=== PATIENT | female | born 1970 | race Caucasian/White ===

== ENCOUNTER 2016-09-27 14:48 | Emergency (ER) | payer OTHER ==
[~2016-09-27] VITALS: Ht 170.2 cm; Wt 68.0 kg
[~2016-09-27 14:48] MED LIST: ALBU8I INH; ALPR2TAB3 PO; METH10TA PO
[2016-09-27 15:00] VITALS: BP 107/58; PULSE 50; RESP 16; TEMP 97.8; O2SAT 94
[2016-09-27 16:28] LABS: AUTOMATED NEUTROPHIL # 2.9 TH/MM3 (1.8-7.7); BASOPHIL # 0.1 TH/MM3 (0-0.2); BASOPHIL % 0.9 % (0.0-2.0); EOSINOPHIL # 0.1 TH/MM3 (0-0.4); EOSINOPHIL % 1.9 % (0.0-4.0); HEMATOCRIT 39.2 % (35.0-46.0); HEMO FLAGS DIFF FINAL; LYMPH % 39.3 % (9.0-44.0); LYMPHOCYTE # 2.4 TH/MM3 (1.0-4.8); MEAN CELL VOLUME 90.4 FL (80.0-100.0); MEAN CORPUSCULAR HGB CONC 34.2 % (32.0-36.0); NEUT % 48.9 % (16.0-70.0); PLATELET COUNT 150 TH/MM3 (150-450); RED BLOOD COUNT 4.34 MIL/MM3 (4.00-5.30); RED CELL DISTRIBUTION WIDTH 13.7 % (11.6-17.2)
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
[2016-09-27 16:54] LABS: ALT (GPT) 45 U/L (10-53); AST (GOT) 40 U/L (15-37); BICARBONATE 29.8 MEQ/L (21.0-32.0); BLOOD UREA NITROGEN 12 MG/DL (7-18); GLOMERULAR FILTRATION RATE 74 ML/MIN (>89)
[2016-09-27 17:36] LABS: ALKALINE PHOSPHATASE 74 U/L (45-117); ANION GAP 6 MEQ/L (5-15); BETA HCG QUANT LESS THAN 1 MIU/ML (0-5); CHLORIDE 101 MEQ/L (98-107); SODIUM (NA) 137 MEQ/L (136-145); TOTAL BILIRUBIN ADULT 0.3 MG/DL (0.2-1.0)
--- NOTE | 2016-09-27 17:46 | RADRPT ---
EXAM DATE/TIME: 09/27/2016 17:30 [facility] COMPARISON: CT BRAIN W/O CONTRAST, September 02, 2012, 21:29. INDICATIONS : Altered mental status today. RADIATION DOSE: 40.48 CTDIvol (mGy) MEDICAL HISTORY : Hypertension. SURGICAL HISTORY : None. ENCOUNTER: Initial ACUITY: 1 day PAIN SCALE: 0/10 LOCATION: cranial TECHNIQUE: Multiple contiguous axial images were obtained of the head. Using automated exposure control and adj ustment of the mA and/or kV according to patient size, radiation dose was kept as low as reasonably a chievable to obtain optimal diagnostic quality images. FINDINGS: CEREBRUM: The ventricles are normal for age. No evidence of midline shift, mass lesion, hemorrhage or acute in farction. No extra-axial fluid collections are seen. POSTERIOR FOSSA: The cerebellum and brainstem are intact. The 4th ventricle is midline. The cerebellopontine angle i s unremarkable. EXTRACRANIAL: The visualized portion of the orbits is intact. SKULL: The calvaria is intact. No evidence of skull fracture. CONCLUSION: 1. No acute intracranial abnormalities. Chronic sinus mucosal thickening in the sphenoid sinus with w all thickening similar to 2012. Jayy Garcia MD on September 27, 2016 at 17:43 Board Certified Radiologist. This report was verified electronically.
[2016-09-27 21:03] LABS: AMPHETAMINE, URINE NEG (NEG); BARBITURATES, URINE NEG (NEG); COCAINE, URINE NEG (NEG)
[2016-09-27 22:26] LABS: BLOOD, URINE NEG (NEG); COMMENT (UR) CULT NOT INDICATED; CULTURE IF INDICATED CULT NOT INDICATED; GLUCOSE,URINE NEG (NEG); KETONE, URINE NEG (NEG); NITRITE,URINE NEG (NEG); PH, URINE 6.5 (5.0-8.5); SQUAMOUS EPITHELIAL CELL URINE 1 /hpf (0-5); URINE COLOR YELLOW (YELLW/STRAW)
[2016-09-27 22:47] VITALS: BP 97/56; PULSE 62; RESP 18; TEMP 97.1; O2SAT 97
[2016-09-28 03:12] VITALS: BP 132/60; PULSE 50; RESP 18; TEMP 97.4; O2SAT 97
[2016-09-28 06:26] VITALS: BP 175/99; PULSE 52; RESP 18; O2SAT 98
[2016-09-28] MEDS ORDERED: cloNIDine HCL 0.1 MG TAB PO ONE (07:00)
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
== END 2016-09-28 08:48 | disposition home or self-care (01) ==
LOC: NEDAMB 14:48 → NEPJ 09-28 08:48
DX: F19.921 Other psychoactive substance use, unspecified with intoxication with delirium (principal); J45.909 Unspecified asthma, uncomplicated; I10 Essential (primary) hypertension; F17.210 Nicotine dependence, cigarettes, uncomplicated; F12.90 Cannabis use, unspecified, uncomplicated
CPT/HCPCS: 70450; 80053; 80307; 80320; 81001; 84702; 85025

== ENCOUNTER 2017-07-23 09:08 | Emergency (ER) | payer SELFPAY ==
[~2017-07-23] VITALS: Ht 177.8 cm; Wt 60.0 kg
[2017-07-23 09:11] VITALS: BP 193/106; PULSE 65; RESP 14; TEMP 98.5; O2SAT 97
[2017-07-23] MEDS ORDERED: PERM5CRE11 TOPICAL (09:48)
--- NOTE | 2017-07-23 09:48 | PD ---
HPI Chief Complaint: Pain: Acute or Chronic Time Seen by Provider: 09:38 Travel History International Travel<30 days: No Contact w/Intl Traveler<30days: No Traveled to known affect area: No History of Present Illness HPI 46-year-old female presents emergency Department with complaint of left hand pain that started yesterday with worsening today. Has history of surgery 7 years ago. Denies new or recent injury. Denies fever, vomiting. Denies paresthesias, loss of sensation, decreased range motion, decreased strength to the affected extremity. Is on methadone and has been taking methadone for pain control. Rates the pain 03/03. Describes pain as a stabbing sensation. There is a lump to the back of the hand the patient says is unchanged. Pain is worse with palpation and movement. Pain is decreased while at rest. Also concerned because her roommate was just diagnosed with scabies and she is requesting a prescription for treatment. Denies rash or itchiness. Allergies to penicillin. Has no other medical complaints. No other modifying factors or associated signs and symptoms. PFSH Past Medical History Asthma: Yes Blood Disorders: No Bipolar Disorder: Yes Anxiety: Yes Heart Rhythm Problems: Yes (MURMUR) Cancer: No Cardiovascular Problems: No Diabetes: No Diminished Hearing: No Endocrine: No Gastrointestinal Disorders: No Genitourinary: No Hypertension: Yes Immune Disorder: No Implanted Vascular Access Dvce: No Musculoskeletal: No Neurologic: No Psychiatric: No Reproductive: No Respiratory: No : 5 Para: 1 Miscarriage: 0 : 4 Past Surgical History Cholecystectomy: Yes Pacemaker: No Other Surgery: Yes (L hand) Social History Alcohol Use: No Tobacco Use: Yes (1PPD) Substance Use: Yes (marijuana, denies IV drug abuse or other use) Allergies-Medications (Allergen,Severity, Reaction): Coded Allergies: penicillin G (Unverified Allergy, Severe, 07/23/17) Reported Meds & Prescriptions Reported Meds & Active Scripts Active Elimite Topical (Permethrin) 5% Cream 1 Applic TOPICAL ONCE Reported Alprazolam 2 Mg Tab 2 Mg PO BID Ventolin Hfa (Albuterol Sulfate) 8 Gm Aero 1 Puff INH Q4 * SHAKE WELL BEFORE USE * Methadone HCl (Methadone Hcl) 10 Mg Tab 70 Mg PO DAILY Review of Systems Except as stated in HPI: all other systems reviewed are Neg Physical Exam Narrative GENERAL: Well-nourished, well-developed female patient, in no acute distress SKIN: Warm and dry. HEAD: Atraumatic. Normocephalic. EYES: Pupils equal and round. No scleral icterus. No injection or drainage. ENT: Mucosa pink and moist. Airway patent. NECK: Trachea midline. CARDIOVASCULAR: Regular rate. RESPIRATORY: No accessory muscle use. GASTROINTESTINAL: Flat. MUSCULOSKELETAL: Left hand without erythema, edema, ecchymosis; there is a hard lump noted to the dorsal aspect of the second metacarpal region that is without erythema, edema; lump is with tenderness on palpation; no range of motion at the PIP joint of the left second metacarpal which is normal for the patient; no obvious deformity; sensory intact and equal in all fingers pink and warm and cap refill within normal limits. Left upper extremity is supple and nontender with 2+ radial pulse and sensory intact. No obvious deformities. No clubbing. No cyanosis. No edema. NEUROLOGICAL: Awake and alert. Oriented 3. No obvious cranial nerve deficits. Motor grossly within normal limits. Normal speech. PSYCHIATRIC: Appropriate mood and affect; insight and judgment normal. Data Data Last Documented VS Vital Signs Date Time Temp Pulse Resp B/P (MAP) Pulse Ox O2 Delivery O2 Flow Rate FiO2 07/23/17 09:11 98.5 65 14 193/106 (135) 97 Orders Orders Hand, Complete ([id number]) (07/23/17 09:38) [facility] Medical Decision Making Medical Screen Exam Complete: Yes Emergency Medical Condition: Yes Medical Record Reviewed: Yes Differential Diagnosis Nonspecific hand pain, hand strain, osteomyelitis Narrative Course 46-year-old female with left hand pain. Denies injury. Patient has also been exposed to scabies recently and is requesting treatment. I offered the patient pain medication and she declined. Takes methadone. Left hand x-ray ordered to rule out acute process. 1023: Left hand x-ray concludes: December 30 across the second metacarpal is fractured I would assume this is old since I do not see the corresponding bony fracture; Plates are seen bridging the third fourth and fifth metacarpals. Alignment is anatomic. A copy of the x-ray report provided to the patient. Al bandage provider for compression and support. Instructed patient to follow up with hand surgeon. Elimite cream prescribed for home. Instructed patient to follow up with primary care provider. Patient verbalizes understanding and agreement with treatment plan. Patient is medically cleared and stable for discharge. Discussed reasons to return to the emergency department. Patient agrees with treatment plan. The patients vital signs are stable and the patient is stable for outpatient follow-up and treatment. Patient discharged home, stable and in no acute distress. Diagnosis Primary Impression: Left hand pain Additional Impression: Exposure to scabies Referrals: [facility] Primary Care Physician Patient Instructions: General Instructions, Scabies (ED) Additional Instructions: Elimite cream as directed; repeat in one week as needed Soaking in cool water or apply cool, wet washcloths to irritated areas to minimize itching Apply anti-itch creams, such as calamine lotion, to relieve pain and itching as needed [id number] antihistamines as needed and as directed to relieve allergic symptoms caused by scabies Wash all pillows, linens, blankets, etc. in hot water and dry in hot dryer Bag and all unwashable linens, [place] stuffed animals, etc. in a tightly sealed garbage bag for up to 2 weeks Follow-up with vocational guidance counselor Follow-up with primary care provider Return to the emergency department immediately with worsening of symptoms Tylenol or ibuprofen as directed and as needed to reduce pain Rest, ice, compress, and elevate extremity to decrease pain and inflammation Al wrap for support Avoid aggravating activity; increase activity as tolerated Follow-up with primary care provider Return to the emergency department immediately with worsening symptoms Med/Other Pt SpecificInfo: Prescription(s) given Scripts Permethrin Topical (Elimite Topical) 5% Cream 1 APPLIC TOPICAL ONCE for Scabies, #1 TUBE 0 Refills Prov: Vianca Gotti 07/23/17 Disposition: 01 DISCHARGE HOME Condition: Stable Vianca Gotti Jul 23, 2017 09:48
--- NOTE | 2017-07-23 10:09 | RADRPT ---
EXAM DATE/TIME: 07/23/2017 10:02 [facility] COMPARISON: No previous studies available for comparison. INDICATIONS : Left second metacarpalphalangeal joint pain. No new injury. MEDICAL HISTORY : Asthma SURGICAL HISTORY : Multiple surgical sites 7 years ago ENCOUNTER: Initial ACUITY: 2 days PAIN SCORE: 5/10 LOCATION: Left Hand FINDINGS: D. December 30 across the second metacarpal is fractured I would assume this is old since I do not see th e corresponding bony fracture. Plates are seen bridging the third fourth and fifth metacarpals. Alignment is anatomic. CONCLUSION: Fracture plate second metacarpal as described above. This was described as far back as 06/03/2013. Seven Almanza MD FACR on July 23, 2017 at 10:05 Board Certified Radiologist. This report was verified electronically.
== END 2017-07-23 10:43 | disposition home or self-care (01) ==
LOC: NEPK 09:08
DX: M79.642 Pain in left hand (principal); J45.909 Unspecified asthma, uncomplicated; F31.9 Bipolar disorder, unspecified; F41.9 Anxiety disorder, unspecified; I10 Essential (primary) hypertension; F17.200 Nicotine dependence, unspecified, uncomplicated; Z88.0 Allergy status to penicillin; Z79.899 Other long term (current) drug therapy
CPT/HCPCS: 73130; 99283

== ENCOUNTER 2017-10-27 09:26 | Emergency (ER) | payer OTHER ==
[~2017-10-27 09:26] MED LIST changes: +PERM5CRE11 TOPICAL
[2017-10-27 09:29] VITALS: BP 160/70; PULSE 73; RESP 20; TEMP 97.9; O2SAT 97
[2017-10-27] MEDS ORDERED: ALPR2TAB3 PO (09:39)
[2017-10-27] MEDS ORDERED: METH40TA3 PO (09:39)
[2017-10-27] MEDS ORDERED: LORazepam 0.5 MG TAB PO ONE (10:00)
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
== END 2017-10-27 11:13 | disposition home or self-care (01) ==
LOC: NEPD 09:26
DX: S16.1XXA Strain of muscle, fascia and tendon at neck level, initial encounter (principal); V49.59XA Passenger injured in collision with other motor vehicles in traffic accident, initial encounter; M79.641 Pain in right hand; F31.9 Bipolar disorder, unspecified; F41.9 Anxiety disorder, unspecified; I10 Essential (primary) hypertension; J45.909 Unspecified asthma, uncomplicated; F17.200 Nicotine dependence, unspecified, uncomplicated; F12.90 Cannabis use, unspecified, uncomplicated
CPT/HCPCS: 72125; 73130; 99284